=== PATIENT | male | born 1995 | race Caucasian/White ===

== ENCOUNTER 2017-09-05 19:53 | Emergency (ER) | payer BC ==
[~2017-09-05] VITALS: Ht 180.3 cm; Wt 78.5 kg
[2017-09-05 20:35] VITALS: TEMP 38.2; Ht 180.3 cm; Wt 78.5 kg
[2017-09-05] MEDS ORDERED: OSELTAMIVIR PHOSPHATE 75 MG CAP PO STA (21:17)
[2017-09-05] MEDS ORDERED: ACETAMINOPHEN 500 MG TAB PO STA (21:17)
[2017-09-05] MEDS ORDERED: OSEL75CA12 PO (21:21)
--- NOTE | 2017-09-05 21:22 | EMERGENCY ROOM VISIT NOTE ---
ED Visit Note First contact with patient: 20:57 CHIEF COMPLAINT: Flulike symptoms 2 days HISTORY OF PRESENT ILLNESS: Patient is an otherwise healthy 22-year-old male who presents to the emergency department for evaluation of influenza-like symptoms 2 days. He states that he woke up on Tuesday feeling achy, subjectively feverish and having chills. He rested at home for the day and his fluid intake. When he woke up yesterday morning history followed at better, then his symptoms worsened again when he woke up today. He reports a runny nose , watery eyes, sore throat, cough, and ongoing fever, chills and body and muscle aches. He has not recorded his temperature with a thermometer and has not taken any medications for his symptoms. He does report sick contacts who have been diagnosed with influenza. He has not received a flu shot this season. He denies any skin rashes, no posterior neck pain or stiffness, no wheezing or shortness of breath. REVIEW OF SYSTEMS: Review of systems as per HPI. All other systems reviewed were negative. 10 systems reviewed. PMH: Electronic medical records are reviewed and summarized as above/below. See Problem List. SOCIAL HISTORY: Patient is a [employer] student from [place] to lives in a fraternity house. Nonsmoker, social EtOH. PHYSICAL EXAM: Vital Signs: Reviewed Nurse's notes. Low-grade fever 38.2C noted. Patient also noted be tachycardic. MENTAL STATUS: Patient is a pleasant, nontoxic-appearing 22-year-old male who is awake and alert and in no acute distress. HEAD: Atraumatic, without temporal or scalp tenderness. EYES: PERRL, EOMI, no discharge or injection. EARS: Tympanic membranes intact, not inflamed, have normal contour. External canals clear. NOSE: Nares patent, turbinates edematous and boggy with clear rhinorrhea. MOUTH: Mucous membranes moist, no lesions, tongue and gums appear normal. THROAT: No pharyngeal injection, exudates, or tonsillar hypertrophy. Airway is patent. NECK: Supple, nontender, no lymphadenopathy. No nuchal rigidity. HEART: Regular rate and rhythm without murmurs, ectopy, gallops, or rubs. LUNGS: Clear to auscultation and breath sounds equal, no wheezes, rales, or rhonchi. SKIN: Normal. NEUROLOGICAL: Sensory and motor functions grossly intact. Normal gait. EMERGENCY DEPARTMENT COURSE: The patient was seen and evaluated as above. He presents to the emergency department febrile, tachycardic with influenza-like symptoms. He does have positive sick contacts. He is otherwise healthy, with no other comorbidities. I discussed further workup including an influenza swab , versus just treating him empirically, and he is comfortable at this time to defer on any workup. The patient was medicated with Tylenol 1 g orally and Tamiflu 75 mg orally. He was still febrile and tachycardic upon discharge. He appears to have a benign influenza-like illness. He does not have any physical exam findings to suspect meningitis or encephalitis. Supportive care measures were discussed. He was educated on the worsening signs and symptoms for which he should return to the emergency department. The patient was discharged to home in stable condition. Medication reconciliation: I attest that I have personally reviewed the patient' s current medication list. Blood pressure screening : Patient was found to have normal blood pressure on screening and does not require follow-up. Current/Historical Medications Scheduled Oseltamivir (Tamiflu), 75 MG PO BID Allergies Coded Allergies: Sulfa Antibiotics (Verified Allergy, Mild, UNKNOWN, POSSIBLE HIVES, ) Vital Signs Date Time Temp Pulse Resp B/P (MAP) Pulse Ox O2 Delivery O2 Flow Rate FiO2 09/05/17 21:31 117 20 113/70 96 09/05/17 20:35 38.2 125 20 114/73 95 Room Air Medications Administered Medications (Trade) Dose Ordered Sig/Jennifer Route Start Time Stop Time Status Last Admin Dose Admin Acetaminophen (Tylenol Tab) 1,000 mg NOW STAT PO 09/05/17 21:17 09/05/17 21:19 DC 09/05/17 21:28 1,000 MG Oseltamivir Phosphate (Tamiflu Cap) 75 mg NOW STAT PO 09/05/17 21:17 09/05/17 21:19 DC 09/05/17 21:28 75 MG Departure Information Impression Primary Impression: Influenza-like illness Additional Impression: Fever Prescriptions Oseltamivir (Tamiflu) 75 Mg Cap 75 MG PO BID for 5 Days, #10 CAP Prov: Alicia Bell PA 09/05/17 Referrals No Doctor, Assigned (PCP) Patient Instructions [facility] Additional Instructions Tamiflu 75 m tablet twice daily for 5 days. Acetaminophen(Tylenol) may be used for fever or pain. Use 1000mg every six hours as needed. Avoid using more than 3000mg in a 24 hour period. (AND/OR) Ibuprofen(Motrin, Advil) may be used for fever or pain. Use 600mg every six hours as needed. Take with food. Avoid using more than 2400mg in a 24 hour period. Do not use 2400mg per day for more than three consecutive days without physician direction. Prolonged inappropriate use can lead to stomach upset or ulcers. Pseudoephedrine(Sudaphed): 30-60mg every 6 hours as needed for nasal congestion. Do not take this with other stimulant products or supplements. Guaifenesin (Mucinex) : Take 1200 mg every 12 hours as needed for nasal/chest congestion, to help thin secretions. Robitussin or Delsym if needed for cough. Rest and drink plenty of fluids. Controlling your fever with Tylenol and Ibuprofen as above will make you feel better. Wash your hands after nose blowing, sneezing, or coughing. Most germs are spread through contact, therefore improper hygiene may result in your close contacts and loved ones becoming ill just like you. You should quarantined your self and minimize contact with people who are not ill. You should be fever free for 24 hours without fever reducing medications before you returned to class/work. Continue current medications. Return to the ER for severe headache, neck stiffness, chest pain, difficulty breathing, fevers, vomiting, worsening of your condition, or as needed. Follow up with [facility] this week for a recheck of your current condition. Problem Qualifiers
[2017-09-05 21:31] VITALS: BP 113/70; PULSE 117; O2SAT 96
== END 2017-09-05 21:33 | disposition home or self-care (01) ==
LOC: C.EDB 19:57 → C.EDC 21:33
DX: R50.9 Fever, unspecified (principal); M79.1 Myalgia; R07.0 Pain in throat; R05 Cough; R00.0 Tachycardia, unspecified